=== PATIENT | male | born 1975 | race Caucasian/White ===

== ENCOUNTER 2016-06-17 10:00 | Inpatient (IN) | payer MEDICAID ==
[~2016-06-17] VITALS: Ht 182.9 cm; Wt 85.7 kg
[2016-06-17 10:27] LABS: Basophils # (auto) 0 uL; Basophils % (auto) 0.3 % (0.0-2.0); Eosinophils # (auto) 0 uL; Eosinophils % (auto) 0.2 % (0.0-7.0); Hematocrit 44.6 % (41.0-53.0); Hemoglobin 15.1 g/dL (13.5-17.5); Lymphocytes # (auto) 1.1 uL; Lymphocytes % (auto) 8.8 % (10.0-50.0); Mean Corpuscular Hemoglobin 29.8 pg (28.0-32.0); Mean Corpuscular Hgb Conc. 33.8 g/dL (32.0-36.0); Mean Corpuscular Volume 88.2 fL (80.0-100.0); Mean Platelet Volume 6.8 fL (7.4-10.4); Monocytes # (auto) 0.7 uL; Monocytes % (auto) 5.9 % (0.0-12.0); Neutrophils # (auto) 10.5 uL; Neutrophils % (auto) 84.8 % (37.0-80.0); Platelet Count (auto) 374 10^3/uL (140-450); White Blood Cell 12.4 10^3/uL (4.4-10.8)
[2016-06-17 10:58] LABS: Albumin 4.4 g/dL (3.4-5.0); BUN/Creatinine Ratio 14.6; Bilirubin, Total 0.4 mg/dL (0.2-1.0); Potassium 4.6 mmol/L (3.5-5.1)
[2016-06-17 12:08] LABS: Urine RBC None Seen /hpf (0 - 3)
[2016-06-17 12:22] LABS: Urine Bilirubin Negative (Negative); Urine Blood Negative /uL (Negative); Urine Color Yellow (Yellow); Urine Glucose Normal (Normal); Urine Ketone Negative (Negative); Urine Nitrite Negative (Negative); Urine Urobilinogen Normal (Negative); Urine pH 7.5 (5.0-8.0)
[2016-06-17] MEDS ORDERED: HYDROmorphone HCL 2 MG/ML VL IV ONE ×2 (12:30→18:00)
[2016-06-17] MEDS ORDERED: ONDANSETRON HCL 4 MG/2 ML VIAL IV ONE (12:30)
[2016-06-17 12:51] LABS: INR 0.98 (0.9-1.15); Partial Thromboplastin Time 26.1 sec (22.64-33.71); Prothrombin Time 10.6 sec (9.37-12.3)
[2016-06-17] MEDS ORDERED: IOHEXOL 300 MG/ML 100ML BOTTLE IJ ONE (13:14)
[2016-06-17] MEDS ORDERED: HYDROcodone-ACET 5/325MG TAB PO PRN (19:00)
[2016-06-17] MEDS ORDERED: cefTRIAXone 1GM/50ML D5W 50 ML IV ONE (19:00)
[2016-06-17] MEDS ORDERED: LORazepam 2MG/ML-1ML VIAL IV PRN (19:00)
[2016-06-17] MEDS ORDERED: ACETAMINOPHEN 500 MG TAB PO PRN (19:00)
[2016-06-17] MEDS ORDERED: FAMOTIDINE (10MG/ML) 2ML VL IV ONE (19:30)
[2016-06-17] MEDS: SODIUM CHLORIDE 0.9% 1,000 ML IV SCH (19:50)
[2016-06-18] MEDS: metroNIDAZOLE 500MG/100ML 100 ML IV SCH ×5 (00:18→23:43)
[2016-06-18] MEDS: MORPHINE SULF INJ 2 MG/ML SYRINGE 1ML IV PRN ×2 (00:31→09:44)
[2016-06-18] MEDS: ONDANSETRON HCL 4 MG/2 ML VIAL IV PRN ×2 (00:31→09:47)
[2016-06-18 01:00] VITALS: BP 132/100
[2016-06-18 04:49] VITALS: BP 134/87
[2016-06-18] MEDS: SODIUM CHLORIDE 0.9% 1,000 ML IV SCH (05:19)
[2016-06-18 05:52] LABS: Basophils # (auto) 0.1 uL; Basophils % (auto) 0.6 % (0.0-2.0); Eosinophils # (auto) 0.1 uL; Eosinophils % (auto) 0.5 % (0.0-7.0); Hematocrit 45.2 % (41.0-53.0); Hemoglobin 15.6 g/dL (13.5-17.5); Mean Corpuscular Hemoglobin 30.2 pg (28.0-32.0); Mean Corpuscular Hgb Conc. 34.6 g/dL (32.0-36.0); Mean Corpuscular Volume 87.2 fL (80.0-100.0); Mean Platelet Volume 7.4 fL (7.4-10.4); Monocytes # (auto) 1.1 uL; Monocytes % (auto) 9.8 % (0.0-12.0); Neutrophils # (auto) 7.9 uL; Neutrophils % (auto) 71.1 % (37.0-80.0); Platelet Count (auto) 336 10^3/uL (140-450); White Blood Cell 11.1 10^3/uL (4.4-10.8)
[2016-06-18 06:29] LABS: Albumin 3.9 g/dL (3.4-5.0); Bilirubin, Total 0.4 mg/dL (0.2-1.0); Calcium 8.5 mg/dL (8.5-10.1); Potassium 3.9 mmol/L (3.5-5.1); Total Protein 7.2 g/dL (6.4-8.2)
[2016-06-18] MEDS: cefTRIAXone 1GM/50ML D5W 50 ML IV SCH (08:44)
[2016-06-18 09:00] VITALS: BP 136/86
[2016-06-18] MEDS: FAMOTIDINE (10MG/ML) 2ML VL IV SCH ×2 (09:38→21:25)
[2016-06-18] MEDS ORDERED: HYDROmorphone HCL 2 MG/ML VL IM ONE (11:00)
[2016-06-18] MEDS ORDERED: HYDROmorphone HCL 2 MG/ML VL IV PRN (11:15)
[2016-06-18 13:00] VITALS: BP 123/74
[2016-06-18] MEDS: SOD CHL 0.9%/ KCL 20MEQ 1,000 ML IV SCH ×2 (14:07→23:43)
[2016-06-18 17:00] VITALS: BP 123/79
[2016-06-18 21:30] VITALS: BP 93/53
[2016-06-19 05:11] VITALS: BP 121/67
[2016-06-19] MEDS: metroNIDAZOLE 500MG/100ML 100 ML IV SCH ×3 (05:28→18:12)
[2016-06-19 08:00] VITALS: BP 123/79
[2016-06-19] MEDS: cefTRIAXone 1GM/50ML D5W 50 ML IV SCH (08:35)
[2016-06-19 09:18] VITALS: BP 124/71
[2016-06-19] MEDS: FAMOTIDINE (10MG/ML) 2ML VL IV SCH ×2 (09:24→21:51)
[2016-06-19] MEDS: SOD CHL 0.9%/ KCL 20MEQ 1,000 ML IV SCH ×2 (09:25→21:50)
[2016-06-19 13:10] VITALS: BP 139/57
[2016-06-19 17:23] VITALS: BP 128/60
[2016-06-19 22:00] VITALS: BP 114/70
[2016-06-20] MEDS: metroNIDAZOLE 500MG/100ML 100 ML IV SCH ×2 (00:48→05:46)
[2016-06-20 04:56] VITALS: BP 99/74
[2016-06-20] MEDS: SOD CHL 0.9%/ KCL 20MEQ 1,000 ML IV SCH (05:46)
[2016-06-20 05:55] LABS: Basophils # (auto) 0 uL; Basophils % (auto) 0.7 % (0.0-2.0); Eosinophils # (auto) 0.2 uL; Eosinophils % (auto) 2.8 % (0.0-7.0); Hematocrit 44.4 % (41.0-53.0); Hemoglobin 14.9 g/dL (13.5-17.5); Lymphocytes # (auto) 1.6 uL; Lymphocytes % (auto) 24.4 % (10.0-50.0); Mean Corpuscular Hemoglobin 29.5 pg (28.0-32.0); Mean Corpuscular Hgb Conc. 33.7 g/dL (32.0-36.0); Mean Corpuscular Volume 87.4 fL (80.0-100.0); Mean Platelet Volume 7.1 fL (7.4-10.4); Monocytes # (auto) 0.6 uL; Monocytes % (auto) 9.6 % (0.0-12.0); Neutrophils # (auto) 4.2 uL; Neutrophils % (auto) 62.5 % (37.0-80.0); Platelet Count (auto) 322 10^3/uL (140-450); Red Cell Distribution Width 12.9 % (11.6-16.0); White Blood Cell 6.7 10^3/uL (4.4-10.8)
[2016-06-20 06:11] LABS: INR 1.06 (0.9-1.15); Prothrombin Time 11.4 sec (9.37-12.3)
[2016-06-20 06:25] LABS: BUN/Creatinine Ratio 16.1; Calcium 8.4 mg/dL (8.5-10.1); Magnesium 2.4 mg/dL (1.6-2.6); Potassium 4.3 mmol/L (3.5-5.1)
[2016-06-20 08:00] VITALS: BP 97/64
[2016-06-20 08:44] VITALS: BP 97/64
[2016-06-20] MEDS: cefTRIAXone 1GM/50ML D5W 50 ML IV SCH (09:00)
[2016-06-20] MEDS: FAMOTIDINE (10MG/ML) 2ML VL IV SCH (10:00)
== END 2016-06-20 15:37 | disposition home or self-care (01) | DRG 254 ==
LOC: ER 10:02 → OVERFLOW 10:03 → EAST 20:32 → OVERFLOW 20:32 → EAST 20:45
PROVIDERS: ADMIT Internal Medicine; ATTEND Internal Medicine
DX: K40.30 Unilateral inguinal hernia, with obstruction, without gangrene, not specified as recurrent (principal); R65.10 Systemic inflammatory response syndrome (SIRS) of non-infectious origin without acute organ dysfunction; F17.210 Nicotine dependence, cigarettes, uncomplicated
CPT/HCPCS: 36415; 71010; 74177; 80048; 80053; 81001; 83735; 85025; 85610; 85730; 86850; 86900; 86901; 93005; 94761; 96365; 96375; 96376; J0696; J2405; J3490